=== PATIENT | female | born 1955 | race African-American/Black ===

== ENCOUNTER 2017-05-06 16:26 | Inpatient (IN) | payer MEDICARE, MEDICAID ==
[~2017-05-06] VITALS: Ht 167.6 cm; Wt 58.5 kg
[2017-05-06] MEDS ORDERED: Zolpidem 5mg tab ORAL PRN (17:45)
[2017-05-06] MEDS ORDERED: guaiFENesin w/Codeine 5ml Liq ud ORAL PRN (17:45)
[2017-05-06] MEDS: Aspirin Baby 81mg ORAL SCH (18:17)
[2017-05-06 18:22] VITALS: BP 134/74
[2017-05-06] MEDS ORDERED: CARDIZEM60 MG ORAL (19:06)
[2017-05-06 19:40] LABS: BASOPHILS % (AUTO) 1.1 % (0.0-2.0); EOSINOPHILS % (AUTO) 0.4 % (0.0-3.0); LYMPHOCYTES % (AUTO) 26.4 % (20.0-45.0); MEAN CORPUSCULAR HEMOGLOBIN 35.6 PG (27.0-31.0); MEAN CORPUSCULAR HGB CONC 34.2 G/DL (32.0-36.0); MEAN CORPUSCULAR VOLUME 104 FL (80-99); MEAN PLATELET VOLUME 5.2 FL (6.5-10.1); MONOCYTES % (AUTO) 7.8 % (1.0-10.0); NEUTROPHILS % (AUTO) 64.3 % (45.0-75.0); PLATELET COUNT 248 K/UL (150-450); RED BLOOD COUNT 3.64 M/UL (4.20-5.40)
[2017-05-06] MEDS: Albuterol/Ipratropium 3ml neb HHN SCH ×2 (19:48→23:42)
[2017-05-06 19:50] LABS: TROPONIN I < 0.30 ng/mL (<=0.30)
[2017-05-06 19:53] LABS: ALANINE AMINOTRANSFERASE 10 U/L (3-33); ALBUMIN/GLOBULIN RATIO 1.7 (1.0-2.7); ANION GAP 14 (5-15); ASPARTATE AMINO TRANSFERASE 17 U/L (5-40); CALCIUM 9.3 mg/dL (8.6-10.2); CARBON DIOXIDE 23 mEQ/L (20-30); CHLORIDE 91 mEQ/L (98-107); CREATININE 0.8 mg/dL (0.5-0.9); GLOMERULAR FILTRATION RATE > 60 mL/min (>60); POTASSIUM 4.1 mEQ/L (3.4-4.9); SODIUM 128 mEQ/L (135-145); TOTAL PROTEIN 6.5 g/dL (6.6-8.7)
[2017-05-06 20:00] VITALS: BP 140/60
[2017-05-06 20:04] LABS: HEMOLYSIS 10
[2017-05-06] MEDS: Solu-MEDROL 40mg Inj IVP SCH (20:53)
[2017-05-07] VITALS: BP 163/77
[2017-05-07] MEDS: Albuterol/Ipratropium 3ml neb HHN SCH ×6 (03:42→23:17)
[2017-05-07 04:00] VITALS: BP 157/78
--- NOTE | 2017-05-07 07:01 | Consultation ---
DATE OF CONSULTATION: 05/06/2017 CARDIOLOGY CONSULTATION REQUESTING PHYSICIAN: Kaden Brown M.D. REASON FOR CONSULTATION: Chest pain and shortness of breath. History Of Present Illness: This is a 61-year-old female. She has a history of COPD. She did felt shortness of breath, chest pressure, and extreme fatigued this afternoon all unprovoked. She came to my office with concern and an EKG reveals sinus rhythm, low voltage, and nonspecific ST changes. The patient also was short of breath and admitted to the hospital with concerns of an acute coronary syndrome. PAST MEDICAL HISTORY: 1. COPD. 2. Osteoporosis. 3. Allergic rhinitis. 4. Vitamin D deficiency. 5. Paroxysmal atrial ectopy. 6. Hypertension. MEDICATIONS: Prior to admission, reviewed and reconciled. ALLERGIES: Include latex. Social History: Active smoker 50+ pack years. Moderate alcohol use. No substance abuse. Review Of Systems: No fevers or chills. Some cough. No sputum production. Uses nebulizers regularly. No prior history of myocardial infarction or flow-limiting coronary disease known. She has had several outpatient stress echocardiogram studies that have been negative for exercise-induced ischemia. There is no history of melena, bright red blood per rectum, or change in bowel habits. She does have some diverticular disease. There is no dysuria or frequency. No history of diabetes or thyroid disorder. No known history of lipid abnormality. No history of seizure or stroke. PHYSICAL EXAMINATION: Vital signs: Blood pressure is 140/60, pulse 97, respirations 24, and afebrile. Room air oxygen saturation 96%. HEENT: Conjunctivae pink. Sclerae are anicteric. Oropharynx clear. NECK: Supple. Jugular venous pressure normal. LUNGS: With diminished breath sounds. Few expiratory wheezes. Cardiac: Regular rhythm and rate. Normal S1 and S2. No breast masses. ABDOMEN: Soft. EXTREMITIES: No edema. NEUROLOGIC: Nonfocal. Laboratory And Diagnostic Data: Chest x-ray is pending. White count 7, and hemoglobin 13. Potassium 4.1, sodium 128, potassium 91, bicarbonate 23, BUN 11, and creatinine 0.8. Troponin negative. Pro-natriuretic peptide 152. TSH 1.3. IMPRESSION: 1. Possible acute coronary syndrome. 2. Paroxysmal bronchospasm. 3. Chronic obstructive pulmonary disease exacerbation. 4. Nicotine addiction. 5. Moderate alcohol use. 6. Hyponatremia. 7. Hypokalemia. 8. Mild hypovolemia. 9. History of atrial ectopy nonsustained. PLAN: 1. Cardiac monitoring. 2. Serial troponin. 3. Inhaled bronchodilators. 4. Intravenous steroids. 5. Saline hydration. 6. Antiplatelet therapy. 7. DVT prophylaxis. 8. Maintain diltiazem. 9. We will consider reassessment of coronary flow reserve once pulmonary parameters have stabilized. Alvaro Cantu M.D. DR: EDUARDO JOB#: [id number] CC:
[2017-05-07 08:00] VITALS: BP 131/77
[2017-05-07] MEDS: dilTIAZem HCl 90mg tab ORAL SCH (08:36)
[2017-05-07] MEDS: Aspirin Baby 81mg ORAL SCH (08:36)
[2017-05-07] MEDS: Solu-MEDROL 40mg Inj IVP SCH ×2 (08:36→21:00)
[2017-05-07] MEDS: Heparin 5000 units/ml inj SUBQ SCH ×2 (10:08→21:00)
[2017-05-07 12:00] VITALS: BP 124/65
--- NOTE | 2017-05-07 12:11 | Diagnostic Imaging Report ---
APPROVED REPORT CPT Code: 44121 Present Symptoms Comments: Chest pain BILATERAL: Imaging reveals a patent deep venous system bilaterally. There is no evidence of thrombus within the femoral, popliteal or tibial segments. The greater saphenous veins are also within normal limits. Doppler indicates normal spontaneous flow within these segments.
--- NOTE | 2017-05-07 12:41 | Diagnostic Imaging Report ---
Indication: COPD cough, shortness of breath Technique: 2 views of the chest Comparison: none Findings: Lungs and pleural spaces are clear. Heart size is normal. Flattening of the diaphragms, best appreciated on the lateral view, is consistent with stated clinical history of COPD Impression: No acute process COPD changes
[2017-05-07] MEDS ORDERED: LORazepam 0.5mg tab ORAL PRN (15:45)
[2017-05-07 16:00] VITALS: BP 125/70
[2017-05-07 20:00] VITALS: BP 138/75
[2017-05-08] VITALS: BP 145/75
--- NOTE | 2017-05-08 02:15 | History and Physical Report ---
DATE OF ADMISSION: 05/07/2017 CHIEF COMPLAINT: Chest pain. History Of Present Illness: The patient is a pleasant 61-year-old female known to me. She has a history of COPD, osteoporosis, allergic rhinitis, hypertension and presented with complaints of chest pain. According to the patient she was well. She was apparently eating and then developed substernal chest pain that was severe. There was some mild shortness of breath. The pain was described as pressure-like. 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 EKG there showed sinus rhythm with nonspecific ST-T wave changes. The patient was referred to the hospital for further evaluation for possible acute coronary syndrome. The patient denies any fevers, chills. She has had no cough. PAST MEDICAL HISTORY: As above. PAST SURGICAL HISTORY: None. CURRENT MEDICATIONS: Reconciled and reviewed. ALLERGIES: Latex. Social History: The patient is a heavy smoker. No alcohol, no drugs. FAMILY HISTORY: Noncontributory. Review Of Systems: General: No fever or chills. HEENT: No headaches or visual changes. Cardiopulmonary: Positive chest pain. Mild shortness of breath. Gastrointestinal: No nausea or vomiting. Genitourinary: No urgency or frequency. Musculoskeletal: No joint pain or swelling. Neurologic: No evidence of seizures PHYSICAL EXAMINATION: Vital Signs: Temperature 97, pulse 108, respirations 20, blood pressure 131/77. General: The patient is a well-developed female in no apparent distress. She is awake, alert, oriented. HEENT: Her pupils equal, round, and reactive to light. Sclerae anicteric. Oropharynx clear. NECK: Supple. HEART: Regular rate and rhythm. LUNGS: Clear. ABDOMEN: Soft, nontender, nondistended. EXTREMITIES: Without clubbing, cyanosis, or edema. Laboratory Data: White count of 7, hemoglobin 13. Sodium 128. Troponin was negative. ASSESSMENT: This is a pleasant female with complaints of chest pain. 1. Chest pain, rule out acute coronary syndrome. 2. Chronic obstructive pulmonary disease exacerbation. 3. Hyponatremia. 4. Hypertension. PLAN: 1. IV steroids. 2. Respiratory treatments. 3. Antiplatelet therapy. 4. Cardiology followup. 5. Fluid restrict. 6. Consider sodium supplements. 7. Encourage smoking cessation. Kaden Brown M.D. DR: REYNALDO JOB#: [id number] CC:
--- NOTE | 2017-05-08 03:00 | Progress Note ---
DATE: 05/07/2017 Subjective: The patient has no chest pain. She still feels tightness in her chest related to heavy breathing. No wheezing. She could not sleep last night. She was anxious. The patient now recalls getting her flu shot just prior to her shortness of breath beginning to worsen. OBJECTIVE: VITAL SIGNS: Blood pressure 124/65, pulse 78, and respirations 21. NECK: Supple. LUNGS: With diminished breath sounds with a few expiratory wheezes. Cardiac: Regular rhythm and rate. Normal S1 and S2 with a fourth heart sound. ABDOMEN: Soft. EXTREMITIES: No edema. IMPRESSION: 1. Chronic obstructive pulmonary disease exacerbation. 2. Acute bronchospasm. 3. Anginal syndrome. 4. Hyponatremia. 5. Hypochloremia. PLAN: 1. Continue saline hydration. 2. Intravenous steroids. 3. Inhaled bronchodilators. 4. Anti-platelet therapy. 5. Anxiolytics. Alvaro Cantu M.D. DR: EDUARDO JOB#: [id number] CC:
[2017-05-08] MEDS: Albuterol/Ipratropium 3ml neb HHN SCH ×3 (03:50→11:40)
[2017-05-08 04:00] VITALS: BP 159/76
[2017-05-08 08:00] VITALS: BP 162/87
[2017-05-08] MEDS: Solu-MEDROL 40mg Inj IVP SCH (09:59)
[2017-05-08 10:00] VITALS: BP 162/87
[2017-05-08] MEDS: Aspirin Baby 81mg ORAL SCH (10:00)
[2017-05-08] MEDS: dilTIAZem HCl 90mg tab ORAL SCH (10:00)
[2017-05-08] MEDS: Heparin 5000 units/ml inj SUBQ SCH (10:03)
[2017-05-08 10:05] LABS: MEAN CORPUSCULAR HEMOGLOBIN 36.3 PG (27.0-31.0); MEAN CORPUSCULAR VOLUME 104 FL (80-99); MEAN PLATELET VOLUME 5.7 FL (6.5-10.1); PLATELET COUNT 298 K/UL (150-450); RED BLOOD COUNT 3.78 M/UL (4.20-5.40); RED CELL DISTRIBUTION WIDTH 11.2 % (11.6-14.8); WHITE BLOOD COUNT 6.4 K/UL (4.8-10.8)
[2017-05-08 10:24] LABS: ALANINE AMINOTRANSFERASE 11 U/L (3-33); ALBUMIN/GLOBULIN RATIO 1.6 (1.0-2.7); ANION GAP 16 (5-15); ASPARTATE AMINO TRANSFERASE 17 U/L (5-40); CALCIUM 9.1 mg/dL (8.6-10.2); CARBON DIOXIDE 23 mEQ/L (20-30); CHLORIDE 96 mEQ/L (98-107); CREATININE 0.7 mg/dL (0.5-0.9); GLOMERULAR FILTRATION RATE > 60 mL/min (>60); HEMOLYSIS 6; MAGNESIUM 1.5 mg/dL (1.7-2.5); POTASSIUM 3.5 mEQ/L (3.4-4.9); SODIUM 135 mEQ/L (135-145); TOTAL PROTEIN 6.7 g/dL (6.6-8.7)
[2017-05-08 10:48] LABS: BAND NEUTROPHILS % (MANUAL) 0 % (0-8); BASOPHILS % (MANUAL) 0 % (0-2); EOSINOPHILS % (MANUAL) 0 % (0-3); LYMPHOCYTES % (MANUAL) 10 % (20-45); NEUTROPHILS % (MANUAL) 88 % (45-75); PLATELET ESTIMATE ADEQUATE; PLATELET MORPHOLOGY NORMAL; TOTAL CELLS COUNTED 100
--- NOTE | 2017-05-09 05:31 | Progress Note ---
DATE: 05/08/2017 CARDIOLOGY PROGRESS NOTE Subjective: The patient has no chest pain. She has no shortness of breath at rest. No wheezing. She still not 100% back to her baseline. She feels comfortable ambulating in the hallways. OBJECTIVE: VITAL SIGNS: Blood pressure 162/87, pulse 114, and respirations 18. NECK: Supple. LUNGS: With diminished breath sounds. No wheezing. CARDIAC: Regular rhythm. Rapid rate. Normal S1 and S2. ABDOMEN: Soft. No edema. Laboratory Data: White count 6.4 and hemoglobin 13.7. Potassium 3.5, BUN 6, and creatinine 0.7. Pro-natriuretic peptide 576. Magnesium 1.5. IMPRESSION: 1. Chronic obstructive pulmonary disease exacerbation, improved. 2. Pulmonary hypertension. 3. Elevated natriuretic peptide due to right heart insufficiency, secondary to chronic obstructive pulmonary disease. 4. Hypomagnesemia. 5. Pleuritic chest pain, resolved. 6. Secondary sinus tachycardia may be due to withdrawal. 7. Nicotine dependence. PLAN: 1. Outpatient management. 2. Oral magnesium supplement. 3. Steroid taper on oral prednisone over the next five days. 4. Discontinue IV fluids. 5. Continue diltiazem with titration based on blood pressure and clinical parameters. 6. Outpatient cardiac followup within the next 72 hours. Alvaro Cantu M.D. DR: Justine JOB#: [id number] CC:
--- NOTE | 2017-05-09 19:15 | Discharge Summary ---
DATE OF ADMISSION: 05/06/2017 DATE OF DISCHARGE: 05/08/2017 ADMISSION DIAGNOSES: 1. Chest pain and unstable angina. 2. History of chronic obstructive pulmonary disease. 3. Hypertension. DISCHARGE DIAGNOSES: 1. Chest pain and unstable angina. 2. History of chronic obstructive pulmonary disease. 3. Hypertension. Hospital Course: The patient is a pleasant female with complaints of shortness of breath and chest tightness. She was diagnosed with COPD exacerbation. Cardiology consultation was obtained. The patient was ruled out for [place] with serial enzymes and EKGs, respiratory treatments. On discharge, she was improved. She will be discharged on steroid taper. She has been asked to follow up. Smoking cessation has been discussed with the patient. Discharge Medications: Please see discharge medication list for discharge medications. DIET: Cardiac diet. ACTIVITIES: Ad-skip. Followup: The patient to follow up in one to two weeks in the office. Kaden Brown M.D. DR: REYNALDO JOB#: [id number] CC:
== END 2017-05-08 11:30 | disposition home or self-care (01) | DRG 311 ==
LOC: 2E 16:48
DX: I20.0 Unstable angina (principal); I27.2 Other secondary pulmonary hypertension; E87.1 Hypo-osmolality and hyponatremia; J44.1 Chronic obstructive pulmonary disease with (acute) exacerbation; E83.42 Hypomagnesemia; I10 Essential (primary) hypertension; F17.200 Nicotine dependence, unspecified, uncomplicated; E87.6 Hypokalemia; E86.1 Hypovolemia; M81.0 Age-related osteoporosis without current pathological fracture; R07.81 Pleurodynia
CPT/HCPCS: 36415; 71020; 80053; 83735; 83880; 84443; 84484; 85007; 85025; 93970; 94640; 94664; J7620

== ENCOUNTER → 2018-07-12 | Outpatient (CLI) | payer MEDICARE, MEDICAID ==
[~2018-07-12] MED LIST: CARDIZEM60 MG ORAL
--- NOTE | 2018-07-12 14:40 | Diagnostic Imaging Report ---
Indication: Cough Technique: 2 views of the chest Comparison: 05/07/2017 Findings: There are bilateral basilar atelectatic changes. Lungs are somewhat hyperinflated. Lungs and pleural spaces are otherwise clear. Heart size is normal. The bones are osteoporotic, otherwise intact. No significant interim change Impression: Bilateral basilar atelectasis. No acute process otherwise COPD changes
== END | disposition home or self-care (01) ==
LOC: RAD 11:44
DX: J44.9 Chronic obstructive pulmonary disease, unspecified (principal)
CPT/HCPCS: 71046

== ENCOUNTER 2018-12-06 14:11 | Outpatient (CLI) | payer MEDICARE, MEDICAID ==
--- NOTE | 2018-12-06 15:00 | Diagnostic Imaging Report ---
Indication: Congestion and sinusitis Technique: Continuous helical transaxial imaging of the maxillofacial structures obtained without intravenous contrast administration. Coronal 2-D reformats were also obtained. Study obtained in a Siemens sensation [address] Automatic Exposure Control was utilized. Total Dose length Product (DLP): [address] Dose Index Volume (CTDIvol): 28.19 mGy Comparison: None Findings: There is a small air-fluid level in the left maxillary sinus. There is mucosal thickening in the left ethmoid sinus. The ostiomeatal units are clear bilaterally. The orbits appear normal. Mastoids are clear bilaterally. IMPRESSION: Left ethmoid and maxillary sinusitis The CT scanner at [facility] is accredited by the [employer] and the scans are performed using dose optimization techniques as appropriate to a performed exam including Automatic Exposure control.
== END 2018-12-06 16:11 | disposition home or self-care (01) ==
LOC: CAT 14:11
DX: J32.2 Chronic ethmoidal sinusitis (principal); J32.0 Chronic maxillary sinusitis
CPT/HCPCS: 70486

== ENCOUNTER → 2020-04-30 | Outpatient (CLI) | payer MEDICARE, MEDICAID ==
--- NOTE | 2020-04-30 16:19 | Diagnostic Imaging Report ---
Indication: Shortness of breath Technique: One view of the chest Comparison: 07/12/2018 Findings: Lungs are hyperinflated. There stable linear opacities at the lung bases likely represent scarring. No definite infiltrates, effusions, or congestion. No significant interim change Impression: COPD changes No acute process
== END | disposition home or self-care (01) ==
LOC: RAD 13:00
DX: J44.9 Chronic obstructive pulmonary disease, unspecified (principal); R06.02 Shortness of breath
CPT/HCPCS: 71046